=== PATIENT | female | born 1995 | race Two or more races ===

== ENCOUNTER 2019-05-14 08:15 | Emergency (ER) | payer MEDICAID ==
[~2019-05-14] VITALS: Ht 157.5 cm; Wt 62.1 kg
[2019-05-14 08:19] VITALS: Ht 157.5 cm; Wt 62.1 kg
[2019-05-14 10:58] VITALS: BP 107/55
== END 2019-05-14 10:58 | disposition home or self-care (01) ==
LOC: ED 08:15
DX: J06.9 Acute upper respiratory infection, unspecified (principal); Z98.890 Other specified postprocedural states